=== PATIENT | female | born 1965 | race Two or more races ===

== ENCOUNTER 2024-11-22 14:02 | Inpatient (IN) | payer OTHER ==
[~2024-11-22] VITALS: Ht 162.6 cm; Wt 74.0 kg
--- NOTE | 2024-11-22 14:25 | ED.PDOC ---
HPI Comments 59 y/o F, with a history of vertigo, presents with c/c nonradiating, left sided chest pain, headache, and dizziness. Patient endorses on sudden, unprovoked, and atraumatic onset of symptoms at around 0600, this morning, after waking up. Pain is described as pressure-like in quality and has been ongoing since. She also reports dizziness and headache that began at the same time. She does have a history of vertigo, she did take meclizine this morning which did not seem to help. Denies any recent cough cold runny nose fever or chills. No recent injuries, prior ailments, sick contacts, travel, stressors, or additional pertinent events or history reported. Chief Complaint: Chest Pain Time Seen by MD: 16:30 Reviewed Notes: Nurses Notes, Allergies Allergies: Coded Allergies: Aspirin (Verified Allergy, Unknown, 11/22/24) Information Source: Patient Mode of Arrival: Ambulatory Severity: Moderate Timing: Hours Duration: Since onset Prehospital treatment: None Location: Substernal Radiation: Back (left upper back ) Quality: Sharp Onset: At Rest Cardiac Risk Factors: None PE Risk Factors: None History of: None Past Medical History Past Medical History (Other): vertigo Surgical History: Denies all surgeries RN CARDIAC REHAB History: Denies all RN CARDIAC REHAB Hx Family History Family History: Unknown Social History Smoker: Non-Smoker Alcohol: Denies ETOH Use Drugs: Denies Drug Use Lives In: Home Constitutional: denies: chills, diaphoresis, fatigue, fever, malaise, sweats, weakness, others EENTM: denies: blurred vision, double vision, ear bleeding, ear discharge, ear drainage, ear pain, ear ringing, eye pain, eye redness, hearing loss, mouth pain, mouth swelling, nasal discharge, nose bleeding, nose congestion, nose pain, photophobia, tearing, throat pain, throat swelling, voice changes, others Respiratory: denies: cough, hemoptysis, orthopnea, SOB at rest, shortness of breath, SOB with excertion, stridor, wheezing, others Cardiovascular: reports: chest pain; denies: dizzy spells, diaphoresis, Dyspnea on exertion, edema, irregular heart beat, left arm pain, lightheadedness, palpitations, PND, syncope, others Gastrointestinal: denies: abdomen distended, abdominal pain, blood streaked bowels, constipated, diarrhea, dysphagia, difficulty swallowing, hematemesis, melena, nausea, poor appetite, poor fluid intake, rectal bleeding, rectal pain, vomiting, others Genitourinary: denies: abnormal vagina bleeding, burning, dyspareunia, dysuria, flank pain, frequency, hematuria, incontinence, pain, , vagina discharge, urgency, others Neurological: denies: dizziness, fainting, headache, left sided numbness, left sided weakness, numbness, paresthesia, pre-existing deficit, right sided numbness, right sided weakness, seizure, speech problems, tingling, tremors, weakness, others Musculoskeletal: denies: back pain, gout, joint pain, joint swelling, muscle pain, muscle stiffness, neck pain, others Physical Exam General Appearance: No Apparent Distress, Normal HEENT: Normal ENT Inspection, Pharynx Normal, TMs Normal Neck: Full Range of Motion, Non-Tender, Normal, Normal Inspection Respiratory: Chest Non-Tender, Lungs Clear, No Accessory Muscle Use, No Respi ratory Distress, Normal Breath Sounds Cardiovascular: No Edema, No JVD, No Murmur, No Gallop, Normal Peripheral Pulses, Regular Rate/Rhythm Breast Exam: Deferred Gastrointestinal: No Organomegaly, Non Tender, No Pulsatile Mass, Normal Bowel Sounds, Soft Genitalia: Deferred Pelvic: Deferred Rectal: Deferred Extremities: No calf tenderness, Normal capillary refill, Normal inspection, Normal range of motion, Non-tender, No pedal edema Musculoskeletal : Apperance: Normal Neurologic: Alert, No Motor Deficits, Normal Affect, Normal Mood, No Sensory Deficits, Other (5 Out of 5 strength bilateral upper and lower extremities, intact rapid alternating movements of the hand, intact [id number] bilaterally per) Cerebellar Function: Normal Reflexes: Normal Skin: Dry, Normal Color, Warm Lymphatic: No Adenopathy EKG EKG #1: Comments Rate of 62 normal sinus rhythm no significant ST change EKG #2: Comments Sinus rhythm rate of [address] changes EKG #3: Comments EKG 3. Done at 5:32 p.m.. Demonstrates rate of 58 sinus rhythm no significant ST changes. Was a procedure done? Was a procedure done?: No CP Differential Dx Differential Diagnosis: N/A Differential Diagnosis: N/A Differential Diagnosis: Angina, Chest Wall Pain, Cholelithiasis, Costochondritis, Gastritis, Myocardial Infarction, Pneumonia, Pulmonary Embolus X-Ray, Labs, Meds, VS Vital Signs Date Time Temp Pulse Resp B/P (MAP) Pulse Ox O2 Delivery O2 Flow Rate FiO2 11/22/24 15:13 54 11/22/24 14:10 62 11/22/24 14:06 97.9 60 18 149/89 96 97.9 Lab Test 11/22/24 17:17 11/22/24 15:07 11/22/24 14:40 11/22/24 14:14 Range/Units Troponin I High Sensitivity < 3 L < 3 L < 3 L </=34 ng/L White Blood Count 6.3 4.4-10.8 10^3/uL Red Blood Count 4.53 4.0-5.20 10^6/uL Hemoglobin 14.0 12.2-16.2 g/dL Hematocrit 40.9 36.0-46.0 % Mean Corpuscular Volume 90.3 80.0-100.0 fL Mean Corpuscular Hemoglobin 30.8 28.0-32.0 pg Mean Corpuscular Hemoglobin Concent 34.2 32.0-36.0 g/dL Red Cell Distribution Width 12.8 11.8-14.3 % Platelet Count 239 140-450 10^3/uL Mean Platelet Volume 9.0 6.9-10.8 fL Neutrophils (%) (Auto) 51.1 37.0-80.0 % Lymphocytes (%) (Auto) 41.3 10.0-50.0 % Monocytes (%) (Auto) 5.5 0.0-12.0 % Eosinophils (%) (Auto) 1.8 0.0-7.0 % Basophils (%) (Auto) 0.3 0.0-2.0 % Neutrophils # (Auto) 3.2 1.6-8.6 10 ^3/uL Lymphocytes # (Auto) 2.6 0.4-5.4 10 ^3/uL Monocytes # (Auto) 0.4 0-1.3 10 ^3/uL Eosinophils # (Auto) 0.1 0-0.8 10 ^3/uL Basophils # (Auto) 0 0-0.2 10 ^3/uL Nucleated Red Blood Cells 0.1 % Sodium Level 143 136-145 mmol/L Potassium Level 4.0 3.5-5.1 mmol/L Chloride Level 109 H 98-107 mmol/L Carbon Dioxide Level 24 20-31 mmol/L Anion Gap 10 5-15 Blood Urea Nitrogen 7 L 9-23 mg/dL Creatinine 0.80 0.550-1.02 mg/dL Glomerular Filtration Rate Calc 86 >90 mL/min BUN/Creatinine Ratio 8.8 L 10.0-20.0 Serum Glucose 103 74-106 mg/dL Calcium Level 9.6 8.7-10.4 mg/dL [place] [id number] Ph: [phone] DIAGNOSTIC IMAGING Diagnostic Imaging Report : [id number] Signed PATIENT: ARIAN DELGADILLO ACCT: [id number] UNIT: [id number] : 1965 LOC: ER ROOM / BED: / AGE / SEX: 59 / F ADM STATUS: REG ER SERVICE 35 ORDERING PHYSICIAN: SHREE SLAUGHTER MD PROCEDURE(s): CXR2 - CHEST TWO VIEWS ROUTINE REASON: Chest pain ORDER NUMBER(s): [id number], ACCESSION NUMBER(s): [id number] CHEST TWO VIEWS ROUTINE CLINICAL HISTORY: Chest pain COMPARISON: None TECHNIQUE: Frontal and lateral view of the chest was obtained FINDINGS: Lines and Tubes: None Lungs: No focal consolidation. Pleura: No effusion. No pneumothorax. Cardiomediastinal contours: Unremarkable Bones: No acute osseous abnormality. IMPRESSION: No acute cardiopulmonary disease. ATED BY: ZOE AVILA DO DICTATED DATE/TIME: 11/22/241715 SIGNED BY: ZOE AVILA DO SIGNED DATE/TIME: 11/22/241715 CC: [address] [address] Ph: [phone] DIAGNOSTIC IMAGING Diagnostic Imaging Report : [id number] Signed PATIENT: ARIAN DELGADILLO ACCT: [id number] UNIT: [id number] : 1965 LOC: ER ROOM / BED: / AGE / SEX: 59 / F ADM STATUS: REG ER SERVICE 36 ORDERING PHYSICIAN: SHREE SLAUGHTER MD PROCEDURE(s): HWOCT - HEAD WITHOUT CONTRAST REASON: Headache rule out intracranial hemorrhage ORDER NUMBER(s): [id number], ACCESSION NUMBER(s): [id number] EXAM: CT HEAD WITHOUT CONTRAST INDICATION: Headache rule out intracranial hemorrhage TECHNIQUE: CT of the head without intravenous contrast. Radiation Dose Information: CT Dose: CTDI volume is 53.99 mGy. Dose-length product is 755.91 mGy*cm The dose indicators for CT are the volume Computed Tomography (CT) Dose Index (CTDIvol) and the Dose Length Product (DLP), and are measured in units of mGy and mGy-cm, respectively. These indicators are not patient dose, but values generated from the CT scanner acquisition factors. The report includes radiation exposure data for exposures received during this examination. COMPARISON: None FINDINGS: There is no evidence of acute intracranial hemorrhage, extra-axial collection, mass effect, midline shift, herniation or hydrocephalus. The ventricles, sulci and cisterns are age appropriate. The rodríguez-white differentiation is intact. Patchy periventricular and subcortical white matter hypoattenuation is nonspecific but may be related to small vessel ischemic disease. The visualized paranasal sinuses and mastoid air cells are clear. The surrounding soft tissues and osseous structures are unremarkable. IMPRESSION: 1. No acute intracranial hemorrhage 2. No paranasal sinus disease 3. Mastoids appear clear 59-year-old female presents here with chest discomfort dizziness and headache. She does report the chest discomfort is pressure-like radiation to left arm. At this time I am concerned about acute coronary syndrome. EKG x3 has not demonstrated any significant EKG changes. Troponin x2 is negative. CBC he is BMP are within normal limits. On my examination she has no focal weakness. I have given her meclizine in the ER. CT scan of the brain is unremarkable. At this time patient continues to have ongoing chest discomfort, I am concerned about acute ID syndrome and hospitalist team has been contacted. Patient has been given aspirin in the ER. Time of 1ST Reevaluation: 17:00 Reevaluation 1ST: Unchanged Patient Education/Counseling: Treatment Family Education/Counseling: No Family Present SEPSIS Sepsis Screen Date sepsis recognized/suspect: Nov 22, 2024 Time Sepsis recognized/suspect: 1407 Recent Procedure: No On Antibiotic Therapy: No Respiratory Rate >20: No Heart Rate >90: No Temp<36 C (96.8 F) or >38.3 C: No SBP <90 or MAP <65 mmHG: No New Acute Mental Status Change: No Is the patient on CPAP, BIPAP,: No Physician Orders Electrocardigram (11/22/24 15:04) Electrocardigram (11/22/24 17:04) Chest Two Views Routine (11/22/24 16:36) Head Without Contrast (11/22/24 16:37) Vital Signs Date Time Temp Pulse Resp B/P (MAP) Pulse Ox O2 Delivery O2 Flow Rate FiO2 11/22/24 15:13 54 11/22/24 14:10 62 11/22/24 14:06 97.9 60 18 149/89 96 97.9 Laboratory Tests Test 11/22/24 14:40 White Blood Count 6.3 10^3/uL (4.4-10.8) Departure 1 Departure Time of Disposition: 17:53 Impression: Primary Impression: Chest pain Qualified Codes: R07.9 - Chest pain, unspecified Additional Impressions: Dizziness Headache Qualified Codes: R51.9 - Headache, unspecified Disposition: ADMITTED INPATIENT Condition: Fair Critical Care Note Critical Care Time?: No Stability Stability form required: No Heart Score Heart Score: Heart Score Response (Comments) Value History Moderate Suspicious 1 EKG Normal 0 Age 45-64 1 Risk Factors 1 or 2 risk factors 1 Troponin Normal limit 0 Total 3 I personally scribed for SHREE SLAUGHTER MD ([email or web address]) on 11/22/24 at 14:25. Electronically submitted by Gama Ye ([email or web address]). I personally scribed for SHREE SLAUGHTER MD ([email or web address]) on 11/22/24 at 15:18. Electronically submitted by Gama Ye ([email or web address]). I personally scribed for SHREE SLAUGHTER MD ([email or web address]) on 11/22/24 at 16:40. Electronically submitted by Gama Ye ([email or web address]). I personally scribed for SHREE SLAUGHTER MD ([email or web address]) on 11/22/24 at 17:26. Electronically submitted by Gama Ye ([email or web address]). SHREE SLAUGHTER MD Nov 22, 2024 14:25
--- NOTE | 2024-11-22 15:14 | ECG ---
[facility] Test Date: 2024-11-22 Test Time: 15:13:11 Pat Name: ARIAN DELGADILLO Department: ED Room: 0273T Gender: F House Coordinator: DUSTY : 1965 Requested By: SHREE SLAUGHTER Order Number: [id number] Reading MD: Toan Mcnair Measurements Intervals [place] Rate: 54 P: 53 VA: 184 QRS: 31 QRSD: 93 T: 42 QT: 426 QTc: 404 Interpretive Statements Sinus rhythm Low voltage, precordial leads Electronically Signed On 11-24-2024 18:51:36 PDT by Toan Mcnair Please click the below link to view image of tracing.
[2024-11-22 17:16] LABS: Hematocrit 40.9 % (36.0-46.0); Hemoglobin 14.0 g/dL (12.2-16.2); Mean Corpuscular Hemoglobin 30.8 pg (28.0-32.0); Mean Corpuscular Volume 90.3 fL (80.0-100.0); Nucleated Red Blood Cells % 0.1 %
[2024-11-22 17:17] LABS: Potassium 4.0 mmol/L (3.5-5.1); Sodium 143 mmol/L (136-145)
[2024-11-22 17:18] LABS: Anion Gap 10 (5-15); Carbon Dioxide 24 mmol/L (20-31)
--- NOTE | 2024-11-22 17:18 | DVH ---
XY CHEST TWO VIEWS ROUTINE CLINICAL HISTORY: Chest pain COMPARISON: None TECHNIQUE: Frontal and lateral view of the chest was obtained FINDINGS: Lines and Tubes: None Lungs: No focal consolidation. Pleura: No effusion. No pneumothorax. Cardiomediastinal contours: Unremarkable Bones: No acute osseous abnormality. IMPRESSION: No acute cardiopulmonary disease.
[2024-11-22 17:19] LABS: Calcium 9.6 mg/dL (8.7-10.4)
[2024-11-22 17:20] LABS: Chloride 109 mmol/L (98-107)
[2024-11-22 17:23] LABS: BUN/Creatinine Ratio 8.8 (10.0-20.0); Glucose 103 mg/dL (74-106)
[2024-11-22 17:24] LABS: Blood Urea Nitrogen 7 mg/dL (9-23)
--- NOTE | 2024-11-22 17:28 | DVH ---
EXAM: CT HEAD WITHOUT CONTRAST INDICATION: Headache rule out intracranial hemorrhage TECHNIQUE: CT of the head without intravenous contrast. Radiation Dose Information: CT Dose: CTDI volume is 53.99 mGy. Dose-length product is 755.91 mGy*cm The dose indicators for CT are the volume Computed Tomography (CT) Dose Index (CTDIvol) and the Dose Length Product (DLP), and are measured in units of mGy and mGy-cm, respectively. These indicators are not patient dose, but values generated from the CT scanner acquisition factors. The report includes radiation exposure data for exposures received during this examination. COMPARISON: None FINDINGS: There is no evidence of acute intracranial hemorrhage, extra-axial collection, mass effect, midline s hift, herniation or hydrocephalus. The ventricles, sulci and cisterns are age appropriate. The rodríguez-white differentiation is intact. Patchy periventricular and subcortical white matter hypoattenuation is nonspecific but may be related to small vessel ischemic disease. The visualized paranasal sinuses and mastoid air cells are clear. The surrounding soft tissues and osseous structures are unremarkable. IMPRESSION: 1. No acute intracranial hemorrhage 2. No paranasal sinus disease 3. Mastoids appear clear
[2024-11-22] MEDS: MECLIZINE HCL 25 MG TAB PO ONE (19:24)
[2024-11-22] MEDS ORDERED: NITROGLYCERIN 0.4 MG SL TAB SL PRN (20:45)
[2024-11-22] MEDS ORDERED: ONDANSETRON HCL 4 MG/2 ML VIAL IV PRN (20:45)
[2024-11-22] MEDS ORDERED: MORPHINE SULFATE INJ 2 MG/ml SYRG IV PRN ×2 (20:45)
[2024-11-22 21:24] LABS: INR 1.0 (0.9-1.15); Partial Thromboplastin Time 25.6 SEC (24.5-34.5); Prothrombin Time 10.6 sec (9.3-11.8)
[2024-11-22 21:31] LABS: Magnesium 2.4 mg/dL (1.6-2.6); Triglycerides 110.0 mg/dL (< 150)
[2024-11-22 21:33] LABS: Alanine Aminotransferase 13.0 U/L (7-40); Albumin 4.5 g/dL (3.2-4.8); Alkaline Phosphatase 79.0 U/L (46-116); Bilirubin, Total 0.5 mg/dL (0.2-1.0); Total Protein 7.3 g/dL (5.7-8.2)
[2024-11-22 21:33] LABS: HDL Cholesterol 59.0 mg/dL (40-59)
[2024-11-22 21:36] LABS: Cholesterol 206.0 mg/dL (< 200)
[2024-11-22 21:51] LABS: Urine Protein, UAD Negative (Negative)
[2024-11-22 21:51] LABS: Lipase 58.0 U/L (12-53)
[2024-11-22 21:52] LABS: Bilirubin, Direct 0.1 mg/dL (<0.3)
[2024-11-22 21:56] LABS: Amphetamine Screen, Urine Neg (NEGATIVE); Barbiturate Scree,Urine Neg (NEGATIVE); Benzodiazephine Screen, Urine Neg (NEGATIVE); Cannabinoid Screen, Urine Neg (NEGATIVE); Cocaine Screen, Urine Neg (NEGATIVE); Opiate Scree,Urine Neg (NEGATIVE); Phencyclidine Screen, Urine Neg (NEGATIVE)
--- NOTE | 2024-11-22 22:01 | DVHHPRES ---
History of Present Illness Resident Creating Document: KARAN GARCIA History of Present Illness Peg Power is a 59 year female patient who presents to the ED with chief complaint of left sided oppressive chest pain which radiated to left ear which started in functional class IV on 11/23/2024 at 10:30 a.m. it has been continuous, initially pain had intensity of 8/10, and fluctuated with lowest 2/10, per patient it was triggered after waking up with holocephalic headache and dizziness, which was refractory to ibuprofen. Per patient there is no alleviating factor. Due to persistence of symptoms, patient decided speak with telehealth MANUFACTURING ASSEMBLER, who suggested evaluation in ED, prompting her visit. Denies any other associated symptoms Past medical history: Vertigo, patient was morbidly obese one year ago in completed treatment with Ozempic (she lost in one year approximately 60 lb) Surgical history: Hysterectomy Family history: Mother has heart disease Social history: Lives in [place] alone (next of kin is sister, andrew). Ex tobacco abuse (approximately 12.5 pack-year history of smoking), quit two months ago. Denies current tobacco, alcohol and other drug abuse Allergies: Aspirin and iodine Home medication: Ozempic, meclizine Patient seen and examined at bedside. Currently has no new complaints, chest pain is still present, currently 2/10 intensity at time of evaluation. Past Medical History Per HPI Past Surgical History Per HPI Family History Per HPI Past Social History Per HPI Review of Systems Review of Systems Per HPI Allergies: Coded Allergies: Aspirin (Verified Allergy, Unknown, 11/22/24) Medications Current Medications Medications Dose Ordered Sig/Kumar Route Start Time Stop Time Status Last Admin Dose Admin Acetaminophen 325 mg Q4HP PRN PO 11/22/24 20:45 Ondansetron HCl 4 mg Q4HP PRN IV 11/22/24 20:45 Morphine Sulfate 2 mg Q4HPRN PRN IV 11/22/24 20:45 Enoxaparin Sodium 40 mg DAILY SC 11/23/24 10:00 Nitroglycerin 0.4 mg Q5MINP PRN SL 11/22/24 20:45 Morphine Sulfate 2 mg Q30M PRN IV 11/22/24 20:45 Exam Vital Signs Vital Signs Date Time Temp Pulse Resp B/P (MAP) Pulse Ox O2 Delivery O2 Flow Rate FiO2 11/22/24 19:26 98.0 58 18 110/56 (74) 99 98.0 11/22/24 18:15 Room Air Exam Patient lying in bed, in no acute distress General: Lucid, afebrile, mucosae are moist Cardiovascular: Normal S1 and S2. No murmurs, gallops or rubs Respiratory: Normal ventilation mechanics. Clear lung sounds on auscultation Abdomen: Soft, nontender, no organomegaly, normal bowel sounds MSK/skin: Mobilizes 4 limbs. Skin is dry and warm Neurological: Oriented in 3 spheres. No motor no sensitive deficits. Pupils are isocoric and reactive Labs/Xrays Labs Test 11/22/24 20:55 11/22/24 20:54 11/22/24 20:34 11/22/24 20:32 Range/Units Total Bilirubin 0.5 0.2-1.0 mg/dL Direct Bilirubin 0.1 <0.3 mg/dL Aspartate Amino Transferase (AST) 19 13-40 U/L Alanine Aminotransferase (ALT) 13 7-40 U/L Alkaline Phosphatase 79 46-116 U/L Total Protein 7.3 5.7-8.2 g/dL Albumin 4.5 3.2-4.8 g/dL Thyroid Stimulating Hormone (TSH) 1.77 0.55-4.78 uIU/mL Prothrombin Time 10.6 9.3-11.8 sec Prothrombin Time INR 1.00 0.9-1.15 Activated Partial Thromboplast Time 25.6 24.5-34.5 SEC Lactic Acid Level 0.7 0.4-2.0 mmol/L Urine Color Colorless Yellow Urine Clarity Clear Clear Urine pH 7.0 5.0-9.0 Urine Specific Edgar 1.008 1.001-1.035 Urine Protein Negative Negative Urine Ketones Negative Negative Urine Blood Negative Negative /uL Urine Nitrite Negative Negative Urine Bilirubin Negative Negative Urine Urobilinogen Normal Negative mg/dL Urine Leukocyte Esterase Negative Negative /uL Urine RBC None seen 0 - 4 /hpf Urine Microscopic WBC 2 0-5 /HPF Urine Squamous Epithelial Cells Few <5 /hpf Urine Bacteria None seen None Seen /hpf Urine Glucose Normal Normal mg/dL Urine Opiates Screen Neg NEGATIVE Urine Fentanyl Screen Neg NEGATIVE Urine Barbiturates Screen Neg NEGATIVE Urine Phencyclidine Screen Neg NEGATIVE Urine Amphetamines Screen Neg NEGATIVE Urine Benzodiazepines Screen Neg NEGATIVE Urine Cocaine Screen Neg NEGATIVE Urine Cannabinoids Screen Neg NEGATIVE Test 11/22/24 17:17 11/22/24 14:40 Range/Units Troponin I High Sensitivity < 3 L </=34 ng/L White Blood Count 6.3 4.4-10.8 10^3/uL Red Blood Count 4.53 4.0-5.20 10^6/uL Hemoglobin 14.0 12.2-16.2 g/dL Hematocrit 40.9 36.0-46.0 % Mean Corpuscular Volume 90.3 80.0-100.0 fL Mean Corpuscular Hemoglobin 30.8 28.0-32.0 pg Mean Corpuscular Hemoglobin Concent 34.2 32.0-36.0 g/dL Red Cell Distribution Width 12.8 11.8-14.3 % Platelet Count 239 140-450 10^3/uL Mean Platelet Volume 9.0 6.9-10.8 fL Neutrophils (%) (Auto) 51.1 37.0-80.0 % Lymphocytes (%) (Auto) 41.3 10.0-50.0 % Monocytes (%) (Auto) 5.5 0.0-12.0 % Eosinophils (%) (Auto) 1.8 0.0-7.0 % Basophils (%) (Auto) 0.3 0.0-2.0 % Neutrophils # (Auto) 3.2 1.6-8.6 10 ^3/uL Lymphocytes # (Auto) 2.6 0.4-5.4 10 ^3/uL Monocytes # (Auto) 0.4 0-1.3 10 ^3/uL Eosinophils # (Auto) 0.1 0-0.8 10 ^3/uL Basophils # (Auto) 0 0-0.2 10 ^3/uL Nucleated Red Blood Cells 0.1 % Sodium Level 143 136-145 mmol/L Potassium Level 4.0 3.5-5.1 mmol/L Chloride Level 109 H 98-107 mmol/L Carbon Dioxide Level 24 20-31 mmol/L Anion Gap 10 5-15 Blood Urea Nitrogen 7 L 9-23 mg/dL Creatinine 0.80 0.550-1.02 mg/dL Glomerular Filtration Rate Calc 86 >90 mL/min BUN/Creatinine Ratio 8.8 L 10.0-20.0 Serum Glucose 103 74-106 mg/dL Hemoglobin A1c 5.4 <5.7 % A1C Calcium Level 9.6 8.7-10.4 mg/dL Phosphorus Level 4.0 2.4-5.1 mg/dL Magnesium Level 2.4 1.6-2.6 mg/dL B-Type Natriuretic Peptide 78.59 0-100 pg/mL Triglycerides Level 110 < 150 mg/dL Cholesterol Level 206 H < 200 mg/dL LDL Cholesterol 139 H < 100 mg/dL HDL Cholesterol 59 40-59 mg/dL Lipase 58 H 12-53 U/L SEPSIS Sepsis Screen Date sepsis recognized/suspect: Nov 22, 2024 Time Sepsis recognized/suspect: 1818 Recent Procedure: No On Antibiotic Therapy: No Respiratory Rate >20: No Heart Rate >90: No Temp<36 C (96.8 F) or >38.3 C: No SBP <90 or MAP <65 mmHG: No New Acute Mental Status Change: No Is the patient on CPAP, BIPAP,: No Physician Orders Electrocardigram (11/22/24 15:04) Electrocardigram (11/22/24 17:04) Chest Two Views Routine (11/22/24 16:36) Head Without Contrast (11/22/24 16:37) Admit (11/22/24 20:32) Code Status (11/22/24 20:32) Acetaminophen Tablet (Tylenol Tablet) (11/22/24 20:45) Ondansetron Hcl (Zofran) (11/22/24 20:45) Complete Blood Count (11/23/24 04:00) Comprehensive Metabolic Panel (11/23/24 04:00) Cardiac Diet-2gna,Lofat,Lochol (11/23/24 Breakfast) Echo 2d Mode Cardiac Dop (11/22/24 20:32) Morphine Sulfate Injection (11/22/24 20:45) Enoxaparin Sodium (Lovenox) (11/23/24 10:00) Nitroglycerin Sublingual (Ntrostat Subli (11/22/24 20:45) Morphine Sulfate Injection (11/22/24 20:45) Oxygen By Nasal Cannula (11/22/24 20:32) Stat Ekg For Chest Pain (11/22/24 20:32) Notify Md Of Changes From Base (11/22/24 20:32) Police Dispatcher For 24 Hours (11/22/24 20:32) Emergency Dysrhythmia Protocol (11/22/24 20:32) Rhythm Strips Once Every Shift (11/22/24 20:32) Vitamin D, 25-Hydroxy (11/22/24 20:32) Vitamin B12 (11/22/24 20:32) Carotid Duplx W Color Dop (11/23/24 10:00) Vital Signs Date Time Temp Pulse Resp B/P (MAP) Pulse Ox O2 Delivery O2 Flow Rate FiO2 11/22/24 19:26 98.0 58 18 110/56 (74) 99 98.0 11/22/24 18:15 62 20 99 Room Air 11/22/24 18:15 97.6 62 20 122/51 (74) 99 97.6 11/22/24 17:32 58 11/22/24 15:13 54 11/22/24 14:10 62 11/22/24 14:06 97.9 60 18 149/89 96 97.9 Laboratory Tests Test 11/22/24 14:40 11/22/24 20:34 White Blood Count 6.3 10^3/uL (4.4-10.8) Lactic Acid Level 0.7 mmol/L (0.4-2.0) Medications Medications Dose Ordered Sig/Kumar Route Start Time Stop Time Status Last Admin Dose Admin Meclizine HCl 50 mg ONCE ONCE PO 11/22/24 16:45 11/22/24 16:46 DC 11/22/24 19:24 50 MG Assessment/Plan Assessment/Plan Questionable unstable angina Troponin x3 negative, EKG shows no ST alteration (sinus bradycardia with micro voltage). We will ordered echocardiogram to evaluate wall motion abnormalities Chest x-ray with no acute findings Patient is allergic to aspirin. Indicated clopidogrel and atorvastatin Ruled out CVA BPPV Completed head CT which ruled out intracranial pathology Continue meclizine History of morbid obesity status post GLP-1 inhibitors Rule out cholecystitis/symptomatic cholelithiasis Ordered abdominal ultrasound Ordered hemoglobin A1c Newly diagnosed dyslipidemia Currently on atorvastatin Goals of care discussed with patient for over 18 minutes: Full code status Discussed plan with Dr. Cardona, patient and nurses: Admit the patient to telemetry to evaluate cause of chest pain, we will rule out unstable angina at this point. Ordered echocardiogram. Patient is on clopidogrel and atorvastatin (she is allergic to aspirin). Patient is also allergic to iodine. Pending abdominal ultrasound to rule out abdominal cause of chest pain. Plan discussed with: Patient, Other (Nurses) My Orders Orders - KARAN GARCIA Procedure Category Date Status Time Admit ADMIT 11/22/24 Transmitted 20:32 Code Status CODE 11/22/24 Transmitted 20:32 Acetaminophen Tablet PHA 11/22/24 In Process (Tylenol Tablet) 20:45 Ondansetron Hcl PHA 11/22/24 In Process (Zofran) 20:45 Complete Blood Count LAB 11/23/24 Verified 04:00 Comprehensive LAB 11/23/24 Verified Metabolic Panel 04:00 Cardiac DIET 11/23/24 Transmitted Diet-2gna,Lofat,Lochol Breakfast Echo 2d Mode Cardiac US 11/22/24 Logged DOP 20:32 Morphine Sulfate PHA 11/22/24 In Process Injection 20:45 Enoxaparin Sodium PHA 11/23/24 In Process (Lovenox) 10:00 Nitroglycerin PHA 11/22/24 In Process Sublingual (Ntrostat 20:45 Morphine Sulfate PHA 11/22/24 In Process Injection 20:45 Oxygen By Nasal RT 11/22/24 Transmitted Cannula 20:32 Stat Ekg For Chest EDIE 11/22/24 In Process Pain 20:32 Notify Of Changes EDIE 11/22/24 In Process From Base 20:32 Police Dispatcher For EDIE 11/22/24 In Process 24 Hours 20:32 Emergency Dysrhythmia EDIE 11/22/24 In Process Protocol 20:32 Rhythm Strips Once EDIE 11/22/24 In Process Every Shift 20:32 Vitamin D, 25-Hydroxy LAB 11/22/24 In Process 20:32 Vitamin B12 LAB 11/22/24 In Process 20:32 Carotid Duplx W Color US 11/23/24 Logged DOP 10:00 Date of Service: Nov 22, 2024 Billing Provider: CARRI CARDONA MD Common Visit Codes: 23721-[id number] INP/OBS CARE (HIGH) Secondary Visit Codes: [id number]-[id number] CARE PLAN 30 MINUTES KARAN GARCIA RESIDENT Nov 22, 2024 22:01
[2024-11-22 22:02] VITALS: BP 133/80; PULSE 52; RESP 18; TEMP 98.1; O2SAT 99
[2024-11-22] MEDS: ACETAMINOPHEN 325 MG TAB PO PRN (22:27)
[2024-11-22 22:44] VITALS: BP 133/80; PULSE 52; RESP 18; RESP 99; TEMP 98.1; O2SAT 99
[2024-11-23] VITALS (8 sets, daily range): BP systolic 94–120; BP diastolic 54–66; PULSE 58–75; RESP 16–20; TEMP 97.2–98.2; O2SAT 97–99
[2024-11-23] MEDS ORDERED: SEMA2INJ3 SC (00:02)
[2024-11-23] MEDS ORDERED: MECL12.586 PO (00:02)
[2024-11-23] MEDS ORDERED: MECLIZINE HCL 25 MG TAB PO PRN (02:30)
[2024-11-23] MEDS: CLOPIDOGREL BISULFATE 75 MG TAB PO ONE (02:53)
[2024-11-23] MEDS: ATORVASTATIN 20 MG TAB PO ONE (02:53)
[2024-11-23 05:48] LABS: Alanine Aminotransferase 11 U/L (7-40); Albumin 3.8 g/dL (3.2-4.8); Alkaline Phosphatase 66 U/L (46-116); Anion Gap 9 (5-15); BUN/Creatinine Ratio 13.4 (10.0-20.0); Bilirubin, Total 0.4 mg/dL (0.2-1.0); Blood Urea Nitrogen 9 mg/dL (9-23); Calcium 8.9 mg/dL (8.7-10.4); Carbon Dioxide 25 mmol/L (20-31); Glucose 85 mg/dL (74-106); Potassium 3.7 mmol/L (3.5-5.1); Sodium 143 mmol/L (136-145); Total Protein 6.1 g/dL (5.7-8.2)
[2024-11-23 05:52] LABS: Chloride 109 mmol/L (98-107)
[2024-11-23] MEDS: PANTOPRAZOLE 40 MG TAB PO SCH (06:23)
--- NOTE | 2024-11-23 06:37 | ECG ---
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
[2024-11-23 07:48] LABS: Hematocrit 36.6 % (36.0-46.0); Hemoglobin 12.6 g/dL (12.2-16.2); Mean Corpuscular Hemoglobin 30.9 pg (28.0-32.0); Mean Corpuscular Volume 89.9 fL (80.0-100.0); Nucleated Red Blood Cells % 0.0 %
--- NOTE | 2024-11-23 08:46 | DVH ---
INDICATION: Abdominal pain, rule out gallbladder disease TECHNIQUE: Multiple real-time sonographic images were obtained of the right upper quadrant. COMPARISON: None FINDINGS: The liver demonstrates homogeneous echotexture without focal mass lesions. The liver measu res 4.9 cm. There is no intrahepatic or extrahepatic ductal dilatation. The common duct measures 0.4 cm. The gallbladder is without evidence of stone or sludge. The gallbladder wall measures 0.2 cm and is w ithin normal limits. The right kidney measures 10.1 cm. The right kidney is normal in contour, size, and shape. The echoge nicity is normal. There is no hydronephrosis. The pancreas is not well visualized due to overlying bowel gas. IMPRESSION: Unremarkable right upper quadrant sonogram.
[2024-11-23] MEDS: ENOXAPARIN SOD 40 MG/0.4 ML SYRINGE SC SCH (10:23)
[2024-11-23] MEDS: CLOPIDOGREL BISULFATE 75 MG TAB PO SCH (10:24)
--- NOTE | 2024-11-23 12:27 | DVH ---
Indication: Dizziness Technique: Real-time ultrasound images of the neck vessels with rodríguez-scale, color and wave Doppler we re obtained. Comparison: None Findings: There is [id number] atherosclerotic plaque. The following peak systolic velocities were recorded in cm/sec: Right internal carotid: 80 Right common carotid: 67 Right external carotid: 68 Right internal/common carotid ratio: 1.2 Left internal carotid: 68 Left common carotid: 57 Left external carotid: 64 Left internal/common carotid ratio: 1.2 Right vertebral artery: Patent with normal antegrade direction of flow. Left vertebral artery: Patent with normal antegrade direction of flow. Impression: No hemodynamically significant stenosis by velocity criteria.
--- NOTE | 2024-11-23 14:39 | DVHPN2 ---
Subjective Patient continues to report having left-sided chest discomfort. Reviewed: Care Plan, H&P, Medications Changes from previous H/P or p: No Changes General: Per HPI Objective Vitals Vital Signs Date Time Temp Pulse Resp B/P (MAP) Pulse Ox O2 Delivery O2 Flow Rate FiO2 11/23/24 09:29 97.8 65 16 94/58 (70) 97 97.8 11/23/24 08:00 Room Air* 0 21 Intake/Output Intake and Output 11/23/24 07:00 Intake Total 100 ml Balance 100 ml Intake Oral 100 ml # Voids 1 General Appearance: Alert, Oriented X3, Cooperative, mild distress HEENT: Atraumatic, PERRLA Cardiovascular: Normal S1, Normal S2 Abdomen: Normal bowel sounds, Soft, No tenderness, No hepatospenomegaly, No masses Genitourinary: No Apparent Abnormalities Musculoskeletal: Normal sensory function, Normal motor function Neuro: Normal gait, Normal speech Skin: Dry, Intact Psych/Mental Status: Mental status NL, Mood NL Medications Current Medications Medications Dose Ordered Sig/Kumar Route Start Time Stop Time Status Last Admin Dose Admin Acetaminophen 325 mg Q4HP PRN PO 11/22/24 20:45 11/23/24 10:24 325 MG Ondansetron HCl 4 mg Q4HP PRN IV 11/22/24 20:45 Morphine Sulfate 2 mg Q4HPRN PRN IV 11/22/24 20:45 Enoxaparin Sodium 40 mg DAILY SC 11/23/24 10:00 11/23/24 10:23 40 MG Nitroglycerin 0.4 mg Q5MINP PRN SL 11/22/24 20:45 Morphine Sulfate 2 mg Q30M PRN IV 11/22/24 20:45 Clopidogrel Bisulfate 75 mg DAILY PO 11/23/24 10:00 11/23/24 10:24 75 MG Pantoprazole Sodium 40 mg DAILY@0600 PO 11/23/24 06:00 11/23/24 06:23 40 MG Atorvastatin Calcium 40 mg HS PO 11/23/24 22:00 Meclizine HCl 25 mg [id number] PRN PO 11/23/24 02:30 Laboratory Results Laboratory Tests 11/23/24 05:08 11/23/24 07:18 Chemistry Test 11/22/24 14:40 11/22/24 20:54 11/23/24 05:08 Calcium Level 9.6 mg/dL (8.7-10.4) 8.9 mg/dL (8.7-10.4) Magnesium Level 2.4 mg/dL (1.6-2.6) Phosphorus Level 4.0 mg/dL (2.4-5.1) Albumin 4.5 g/dL (3.2-4.8) 3.8 g/dL (3.2-4.8) Total Protein 7.3 g/dL (5.7-8.2) 6.1 g/dL (5.7-8.2) Coagulation Test 11/22/24 20:34 Prothrombin Time 10.6 sec (9.3-11.8) Prothrombin Time INR 1.00 (0.9-1.15) Activated Partial Thromboplast Time 25.6 SEC (24.5-34.5) Lipid panel Test 11/22/24 14:40 Cholesterol Level 206 mg/dL (< 200) H HDL Cholesterol 59 mg/dL (40-59) Lipase 58 U/L (12-53) H Triglycerides Level 110 mg/dL (< 150) Cardiac Markers Test 11/22/24 14:40 B-Type Natriuretic Peptide 78.59 pg/mL (0-100) LFT Test 11/22/24 20:54 11/23/24 05:08 Alanine Aminotransferase (ALT) 13 U/L (7-40) 11 U/L (7-40) Alkaline Phosphatase 79 U/L (46-116) 66 U/L (46-116) Aspartate Amino Transferase (AST) 19 U/L (13-40) 18 U/L (13-40) Direct Bilirubin 0.1 mg/dL (<0.3) Total Bilirubin 0.5 mg/dL (0.2-1.0) 0.4 mg/dL (0.2-1.0) HgA1c, TSH Test 11/22/24 14:40 11/22/24 20:54 Hemoglobin A1c 5.4 % A1C (<5.7) Thyroid Stimulating Hormone (TSH) 1.77 uIU/mL (0.55-4.78) Urinalysis Test 11/22/24 20:32 Urine Color Colorless (Yellow) Urine Clarity Clear (Clear) Urine pH 7.0 (5.0-9.0) Urine Specific [place] 1.008 (1.001-1.035) Urine Protein Negative (Negative) Urine Ketones Negative (Negative) Urine Blood Negative /uL (Negative) Urine Nitrite Negative (Negative) Urine Bilirubin Negative (Negative) Urine Urobilinogen Normal mg/dL (Negative) Urine Leukocyte Esterase Negative /uL (Negative) Urine RBC None seen /hpf (0 - 4) Urine Microscopic WBC 2 /HPF (0-5) Urine Squamous Epithelial Cells Few /hpf (<5) Urine Bacteria None seen /hpf (None Seen) Urine Glucose Normal mg/dL (Normal) Labs and/or images reviewed: Labs reviewed by me, Image(s) reviewed by me Assessment/Plan Assessment/Plan Impression: -rule out ACS -probable esophagitis, gastritis, rule out Kerr's esophagitis -BPPV Plan: -cardiac workup thus far negative, pending echocardiogram -discussion made with the patient regarding home symptoms which include severe GERD, previous treatment with omeprazole. Patient takes baking soda every evening to avoid indigestion during sleep. -GI consultation -PPI -continue meclizine -further course of care per GI consultation and echocardiogram results Total time spent with patient discussing and formulating plan of care: 35 minutes. This medical document was created using an electronic medical record system with [employer] dictation system. Although this document has been carefully reviewed, there may still be some phonetic and typographical errors. These areas are purely typographical due to imperfections of the software programs, and do not reflect any compromise in the patient's medical care. Plan discussed with: Patient, Other (RN) My Orders Orders - CINDI MURRAY NP Procedure Category Date Status Time Erythrocyte LAB 11/23/24 Logged Sedimentation Rate 14:23 C-Reactive Protein LAB 11/23/24 Logged 14:23 Date of Service: Nov 23, 2024 Billing Provider: CINDI MURRAY NP Common Visit Codes: [id number] INP/OBS CARE(HIGH) CINDI MURRAY NP Nov 23, 2024 14:39
--- NOTE | 2024-11-23 16:25 | DVHSR ---
APPROVED REPORT EXAM: Two-dimensional and M-mode echocardiogram with Doppler and color Doppler. Blood Pressure: 120/54 mmHg INDICATION Chest Pain RISK FACTORS Height: 5'4", Weight: 156 DIMENSIONS LVDd4.1 (3.8-5.7cm)LA (2D)3.2 (1.9-4.0cm)Aortic Root2.9 (2.0-3.7cm) LVDs3.0 (2.5-4.0cm)LA (MM) (1.9-4.0cm)Aortic Cusp Exc1.8 (1.5-2.0cm) EF (%) 55.0 (55-70%)Rt. Atrium3.5 (1.9-4.0cm)Asc. Aorta cm IVSd0.9 (0.7-1.1cm)RV (D) (1.8-2.4cm) PWd0.8 (0.7-1.1cm) Mitral Valve MitralMitral Stenosis E wave0.80m/sMV Mean GR.mmHg A wave0.60m/sMV Peak GR.mmHg E/A ratio1.32D MVAcm2 DECEL [id number] 1/2 Timems Aortic Valve Aortic ValveAortic Stenosis V10.89m/Skuhwinder Mean GR.4mmHg V21.39m/Sukhwinder Peak GR.8mmHg LVOT Diameter2.1 (1.8-2.4cm)Doppler AVA2.22cm2 Pulmonic Valve V20.84m/s Tricuspid Valve TR Velocity2.03m/s [id number] Conclusion LV EF IS 65% NORMAL VALVES NORMAL RV FUNCTION NO EFFUSION
[2024-11-23] MEDS: ATORVASTATIN 20 MG TAB PO SCH (21:38)
[2024-11-23] MEDS: SODIUM BICARBONATE 650 MG TAB PO SCH (21:38)
[2024-11-23] MEDS: PANTOPRAZOLE 40 MG/10 ML VIAL INJ IV SCH (21:39)
[2024-11-24] VITALS (8 sets, daily range): BP systolic 95–109; BP diastolic 62–65; PULSE 54–75; RESP 15–20; TEMP 97.3–98.6; O2SAT 96–100
--- NOTE | 2024-11-24 12:28 | ECG ---
Test Date: 2024-11-22 Test Time: 14:10:03 Pat Name: ARIAN DELGADILLO Department: ED Room: 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
--- NOTE | 2024-11-24 13:46 | DVHPN2 ---
Subjective Patient continues to report having left-sided chest discomfort. Reviewed: Care Plan, H&P, Medications Changes from previous H/P or p: No Changes General: Per HPI Objective Vitals Vital Signs Date Time Temp Pulse Resp B/P (MAP) Pulse Ox O2 Delivery O2 Flow Rate FiO2 11/24/24 09:00 98.0 69 15 103/63 (76) 96 98.0 11/24/24 08:00 Room Air* 0 21 Intake/Output Intake and Output 11/24/24 07:00 Intake Total 460 ml Balance 460 ml Intake Oral 460 ml # Voids 8 # Bowel Movements 1 General Appearance: Alert, Oriented X3, Cooperative, mild distress HEENT: Atraumatic, PERRLA Cardiovascular: Normal S1, Normal S2 Abdomen: Normal bowel sounds, Soft, No tenderness, No hepatospenomegaly, No masses Genitourinary: No Apparent Abnormalities Musculoskeletal: Normal sensory function, Normal motor function Neuro: Normal gait, Normal speech Skin: Dry, Intact Psych/Mental Status: Mental status NL, Mood NL Medications Current Medications Medications Dose Ordered Sig/Kumar Route Start Time Stop Time Status Last Admin Dose Admin Acetaminophen 325 mg Q4HP PRN PO 11/22/24 20:45 11/24/24 09:20 325 MG Ondansetron HCl 4 mg Q4HP PRN IV 11/22/24 20:45 Morphine Sulfate 2 mg Q4HPRN PRN IV 11/22/24 20:45 Enoxaparin Sodium 40 mg DAILY SC 11/23/24 10:00 11/23/24 10:23 40 MG Nitroglycerin 0.4 mg Q5MINP PRN SL 11/22/24 20:45 Morphine Sulfate 2 mg Q30M PRN IV 11/22/24 20:45 Atorvastatin Calcium 40 mg HS PO 11/23/24 22:00 11/23/24 21:38 40 MG Meclizine HCl 25 mg [id number] PRN PO 11/23/24 02:30 Pantoprazole Sodium 40 mg BID IV 11/23/24 22:00 11/23/24 21:39 40 MG Sodium Bicarbonate 650 mg TID PO 11/23/24 22:00 11/24/24 06:10 650 MG Laboratory Results Laboratory Tests 11/23/24 05:08 11/23/24 07:18 Urinalysis Test 11/22/24 20:32 Urine Color Colorless (Yellow) Urine Clarity Clear (Clear) Urine pH 7.0 (5.0-9.0) Urine Specific [place] 1.008 (1.001-1.035) Urine Protein Negative (Negative) Urine Ketones Negative (Negative) Urine Blood Negative /uL (Negative) Urine Nitrite Negative (Negative) Urine Bilirubin Negative (Negative) Urine Urobilinogen Normal mg/dL (Negative) Urine Leukocyte Esterase Negative /uL (Negative) Urine RBC None seen /hpf (0 - 4) Urine Microscopic WBC 2 /HPF (0-5) Urine Squamous Epithelial Cells Few /hpf (<5) Urine Bacteria None seen /hpf (None Seen) Urine Glucose Normal mg/dL (Normal) Labs and/or images reviewed: Labs reviewed by me, Image(s) reviewed by me Assessment/Plan Assessment/Plan Impression: -rule out ACS -probable esophagitis, gastritis, rule out Kerr's esophagitis -BPPV Plan: -cardiac workup negative. Patient with epigastric, GERD pain. Echocardiogram within normal limits. Discussed case Gastroenterology. Plans for EGD tomorrow. -GI consultation -PPI -continue meclizine -further course of care per GI consultation and echocardiogram results Total time spent with patient discussing and formulating plan of care: 35 minutes. This medical document was created using an electronic medical record system with [employer] dictation system. Although this document has been carefully reviewed, there may still be some phonetic and typographical errors. These areas are purely typographical due to imperfections of the software programs, and do not reflect any compromise in the patient's medical care. Plan discussed with: Patient, Other (RN) My Orders Orders - CINDI MURRAY NP Procedure Category Date Status Time Pantoprazole PHA 11/23/24 In Process (Protonix) 22:00 Sodium Bicarb Tab PHA 11/23/24 In Process 22:00 * Gi Dvh Ski Technician CONS 11/23/24 Transmitted 14:25 Date of Service: Nov 24, 2024 Billing Provider: CINDI MURRAY NP Common Visit Codes: [id number] INP/OBS CARE(HIGH) CINDI MURRAY NP Nov 24, 2024 13:46
--- NOTE | 2024-11-24 13:47 | DVHINCON2 ---
GI Consult Consult Note GI consult note Date of Consultation: 11/24/2024 Chief Complaint: GERD Referring Physician: Jennifer CARPENTER H&P: 59-year-old female admitted with complains of left-sided chest pain/pressure which radiates to her back, pain is worse after eating solid food or liquids. No nausea or vomiting. Patient has history of GERD symptoms just getting worse described as burning sensation. No abdominal pain. Patient is on Ozempic, last dosage last Sunday11/18/2024. And has weight loss of 60 lb since starting Ozempic in June 2023. No EGD in past. Patient is on Plavix and Lovenox. Past Medical History: Morbid obesity treated with Ozempic with weight loss of 60 lb Past Surgical History: Hysterectomy Social History: NO smoking, drinking ETOH and use of illegal drugs. Family History: Noncontributory Review of Systems: Constitutional: no fever, chill, weight loss HEENT: no eye pain, no hearing loss, no oral lesion, no scleral icterus Heart: no chest pain, no chest pressure Lung: no cough, no dyspnea with exertion Abdomen: see HPI Physical exam: General: NAD, AAOX3 Chest: lung chung clear to auscultation Heart: RRR, no murmur Abdomen: non-distended, no tenderness to palpation, +BS Labs: Labs Test 11/23/24 07:18 11/23/24 05:08 11/22/24 20:55 11/22/24 20:54 Range/Units White Blood Count 5.8 4.4-10.8 10^3/uL Red Blood Count 4.08 4.0-5.20 10^6/uL Hemoglobin 12.6 12.2-16.2 g/dL Hematocrit 36.6 # 36.0-46.0 % Mean Corpuscular Volume 89.9 80.0-100.0 fL Mean Corpuscular Hemoglobin 30.9 28.0-32.0 pg Mean Corpuscular Hemoglobin Concent 34.4 32.0-36.0 g/dL Red Cell Distribution Width 13.1 11.8-14.3 % Platelet Count 188 140-450 10^3/uL Mean Platelet Volume 8.6 6.9-10.8 fL Neutrophils (%) (Auto) 44.3 37.0-80.0 % Lymphocytes (%) (Auto) 45.3 10.0-50.0 % Monocytes (%) (Auto) 7.3 0.0-12.0 % Eosinophils (%) (Auto) 2.6 0.0-7.0 % Basophils (%) (Auto) 0.5 0.0-2.0 % Neutrophils # (Auto) 2.6 1.6-8.6 10 ^3/uL Lymphocytes # (Auto) 2.6 0.4-5.4 10 ^3/uL Monocytes # (Auto) 0.4 0-1.3 10 ^3/uL Eosinophils # (Auto) 0.2 0-0.8 10 ^3/uL Basophils # (Auto) 0 0-0.2 10 ^3/uL Nucleated Red Blood Cells 0.0 % Erythrocyte Sedimentation Rate 9 0-20 mm/hr Sodium Level 143 136-145 mmol/L Potassium Level 3.7 3.5-5.1 mmol/L Chloride Level 109 H 98-107 mmol/L Carbon Dioxide Level 25 20-31 mmol/L Anion Gap 9 5-15 Blood Urea Nitrogen 9 9-23 mg/dL Creatinine 0.67 0.550-1.02 mg/dL Glomerular Filtration Rate Calc 102 >90 mL/min BUN/Creatinine Ratio 13.4 10.0-20.0 Serum Glucose 85 74-106 mg/dL Calcium Level 8.9 8.7-10.4 mg/dL Total Bilirubin 0.4 0.2-1.0 mg/dL Aspartate Amino Transferase (AST) 18 13-40 U/L Alanine Aminotransferase (ALT) 11 7-40 U/L Alkaline Phosphatase 66 46-116 U/L C-Reactive Protein High Sensitivity 0.18 <1.0 mg/dL Total Protein 6.1 5.7-8.2 g/dL Albumin 3.8 3.2-4.8 g/dL Vitamin B12 Level 882 211-911 pg/mL Vitamin D 25-Hydroxy 55.4 30.0-100 ng/mL Direct Bilirubin 0.1 <0.3 mg/dL Thyroid Stimulating Hormone (TSH) 1.77 0.55-4.78 uIU/mL Test 11/22/24 20:34 11/22/24 20:32 11/22/24 17:17 11/22/24 14:40 Range/Units Prothrombin Time 10.6 9.3-11.8 sec Prothrombin Time INR 1.00 0.9-1.15 Activated Partial Thromboplast Time 25.6 24.5-34.5 SEC Lactic Acid Level 0.7 0.4-2.0 mmol/L Urine Color Colorless Yellow Urine Clarity Clear Clear Urine pH 7.0 5.0-9.0 Urine Specific [place] 1.008 1.001-1.035 Urine Protein Negative Negative Urine Ketones Negative Negative Urine Blood Negative Negative /uL Urine Nitrite Negative Negative Urine Bilirubin Negative Negative Urine Urobilinogen Normal Negative mg/dL Urine Leukocyte Esterase Negative Negative /uL Urine RBC None seen 0 - 4 /hpf Urine Microscopic WBC 2 0-5 /HPF Urine Squamous Epithelial Cells Few <5 /hpf Urine Bacteria None seen None Seen /hpf Urine Glucose Normal Normal mg/dL Urine Opiates Screen Neg NEGATIVE Urine Fentanyl Screen Neg NEGATIVE Urine Barbiturates Screen Neg NEGATIVE Urine Phencyclidine Screen Neg NEGATIVE Urine Amphetamines Screen Neg NEGATIVE Urine Benzodiazepines Screen Neg NEGATIVE Urine Cocaine Screen Neg NEGATIVE Urine Cannabinoids Screen Neg NEGATIVE Troponin I High Sensitivity < 3 L </=34 ng/L Hemoglobin A1c 5.4 <5.7 % A1C Phosphorus Level 4.0 2.4-5.1 mg/dL Magnesium Level 2.4 1.6-2.6 mg/dL B-Type Natriuretic Peptide 78.59 0-100 pg/mL Triglycerides Level 110 < 150 mg/dL Cholesterol Level 206 H < 200 mg/dL LDL Cholesterol 139 H < 100 mg/dL HDL Cholesterol 59 40-59 mg/dL Lipase 58 H 12-53 U/L Imaging: Abdominal ultrasound IMPRESSION: Unremarkable right upper quadrant sonogram. Echocardiogram Conclusion LV EF IS 65% NORMAL VALVES NORMAL RV FUNCTION NO EFFUSION Assessment: Rule out ACS Severe GERD Plan: Discussed with Dr. Solis - Pt will be scheduled for an EGD tomorrow 11/25/2024. Pt was informed of the risks (bleeding, infection, perforation, reaction to sedation medications and cardiopulmonary arrest) and benefit and is agreeable to undergo the procedures. Hold blood thinners Continue PPI Discussed plan with patient and hospitalist Thank you for this consult Date of Service: Nov 24, 2024 Billing Provider: RAHEEM OTTO Common Visit Codes: CONSULT ONLY Consultation Codes: [id number] CONSULT <60MIN RAHEEM OTTO Nov 24, 2024 13:47
[2024-11-25] VITALS (8 sets, daily range): BP systolic 99–128; BP diastolic 54–74; PULSE 59–89; RESP 13–26; TEMP 98.1–98.7; O2SAT 95–100
--- NOTE | 2024-11-25 08:01 | ECG ---
[facility] Test Date: 2024-11-25 Test Time: 05:42:18 Pat Name: ARIAN DELGADILLO Department: Respiratoy Room: [facility]3T A Gender: F [employer]orer [employer]: DEL[place] Ni : 1965 Requested By: JAKUB OTTO Order Number: [id number] Reading MD: Toan Mcnair Measurements Intervals [place] Rate: 73 P: 49 ID: [id number] QRS: 24 QRSD: 92 T: 34 QT: 402 QTc: 443 Interpretive Statements Sinus rhythm Electronically Signed On 11-25-2024 15:38:42 PDT by Toan Mcnair Please click the below link to view image of tracing.
--- NOTE | 2024-11-25 12:32 | DVHPN2 ---
Subjective Patient continues to report having left-sided chest discomfort. Reviewed: Care Plan, H&P, Medications Changes from previous H/P or p: No Changes General: Per HPI Objective Vitals Vital Signs Date Time Temp Pulse Resp B/P (MAP) Pulse Ox O2 Delivery O2 Flow Rate FiO2 11/25/24 08:48 98.1 66 15 106/54 (71) 100 98.1 11/25/24 07:45 Room Air* 0 21 Intake/Output Intake and Output 11/25/24 07:00 Intake Total 1600 ml Balance 1600 ml Intake Oral 1600 ml # Voids 6 General Appearance: Alert, Oriented X3, Cooperative, mild distress HEENT: Atraumatic, PERRLA Cardiovascular: Normal S1, Normal S2 Abdomen: Normal bowel sounds, Soft, No tenderness, No hepatospenomegaly, No masses Genitourinary: No Apparent Abnormalities Musculoskeletal: Normal sensory function, Normal motor function Neuro: Normal gait, Normal speech Skin: Dry, Intact Psych/Mental Status: Mental status NL, Mood NL Medications Current Medications Medications Dose Ordered Sig/Kumar Route Start Time Stop Time Status Last Admin Dose Admin Acetaminophen 325 mg Q4HP PRN PO 11/22/24 20:45 11/24/24 20:21 325 MG Ondansetron HCl 4 mg Q4HP PRN IV 11/22/24 20:45 Morphine Sulfate 2 mg Q4HPRN PRN IV 11/22/24 20:45 Nitroglycerin 0.4 mg Q5MINP PRN SL 11/22/24 20:45 Morphine Sulfate 2 mg Q30M PRN IV 11/22/24 20:45 Atorvastatin Calcium 40 mg HS PO 11/23/24 22:00 11/24/24 21:44 40 MG Meclizine HCl 25 mg [id number] PRN PO 11/23/24 02:30 Pantoprazole Sodium 40 mg BID IV 11/23/24 22:00 11/25/24 09:14 40 MG Sodium Bicarbonate 650 mg TID PO 11/23/24 22:00 11/24/24 21:44 650 MG Laboratory Results Laboratory Tests 11/23/24 05:08 11/23/24 07:18 Urinalysis Test 11/22/24 20:32 Urine Color Colorless (Yellow) Urine Clarity Clear (Clear) Urine pH 7.0 (5.0-9.0) Urine Specific [place] 1.008 (1.001-1.035) Urine Protein Negative (Negative) Urine Ketones Negative (Negative) Urine Blood Negative /uL (Negative) Urine Nitrite Negative (Negative) Urine Bilirubin Negative (Negative) Urine Urobilinogen Normal mg/dL (Negative) Urine Leukocyte Esterase Negative /uL (Negative) Urine RBC None seen /hpf (0 - 4) Urine Microscopic WBC 2 /HPF (0-5) Urine Squamous Epithelial Cells Few /hpf (<5) Urine Bacteria None seen /hpf (None Seen) Urine Glucose Normal mg/dL (Normal) Labs and/or images reviewed: Labs reviewed by me, Image(s) reviewed by me Assessment/Plan Assessment/Plan Impression: -rule out ACS -probable esophagitis, gastritis, rule out Kerr's esophagitis -BPPV Plan: -cardiac workup negative. Patient with epigastric, GERD pain. Echocardiogram within normal limits. Discussed case Gastroenterology. Pending EGD today. -GI consultation -PPI -continue meclizine -echocardiogram normal -antiplatelet therapy stopped yesterday Total time spent with patient discussing and formulating plan of care: 35 minutes. This medical document was created using an electronic medical record system with [employer] dictation system. Although this document has been carefully reviewed, there may still be some phonetic and typographical errors. These areas are purely typographical due to imperfections of the software programs, and do not reflect any compromise in the patient's medical care. Plan discussed with: Patient, Other (RN) Date of Service: Nov 25, 2024 Billing Provider: CINDI MURRAY NP Common Visit Codes: [id number] INP/OBS CARE(HIGH) CINDI MURRAY NP Nov 25, 2024 12:32
[2024-11-25] MEDS ORDERED: MIDAZOLAM HCL 2MG/2ML 2ml VIAL (1mg/ml) ONE (14:01)
[2024-11-25] MEDS ORDERED: LIDOCAINE 2% (LOCAL ANESTH.) PF 5ml SDV ONE (14:01)
[2024-11-25] MEDS ORDERED: GLYCOPYRROLATE 0.2 MG/ML 1ML VIAL ONE (14:01)
[2024-11-25] MEDS ORDERED: fentaNYL CITRATE 100 MCG/2 ML VL ONE (14:01)
[2024-11-25] MEDS ORDERED: ONDANSETRON HCL 4 MG/2 ML VIAL ONE (14:01)
[2024-11-25] MEDS ORDERED: PROPOFOL 10 MG/ML 20 ML IV ONE (14:01)
[2024-11-25] MEDS ORDERED: HYDROmorphone HCL 2 MG/ML VL/or syr IV PRN (14:30)
--- NOTE | 2024-11-25 14:38 | DVHOP2 ---
Operative Report DATE OF OPERATION: 11/25/24 PROCEDURE: Upper Endoscopy with biopsy. PREOPERATIVE INDICATION: The patient is a 59 -year-old female undergoing endoscopy for GERD and atypical chest pain POSTOPERATIVE DIAGNOSES: 1. 3 cm sliding-type hiatal hernia with slightly irregular squamocolumnar junction minimal grade a erosive esophagitis 2. Mild antral gastritis with pylorospasm otherwise normal examination up to the 2nd and 3rd part of the duodenum PROCEDURE PERFORMED BY: Nahomi Solis GI NURSE: Iwona SCOPE: Olympus videoendoscope. ASA CLASS: 3 PREOPERATIVE MEDICATIONS: Dr. Willie Cordova PROCEDURE IN DETAIL: After obtaining an informed consent, the patient was placed on left lateral decubitus position. The patient was then sedated with the above medications. A bite block was placed between her teeth. The endoscope was then passed through the oropharynx, into the esophagus, and through the stomach and pylorus up to the second and third part of the duodenum. The endoscope was then withdrawn. The 2nd and 3rd part of the duodenum and the duodenal bulb were normal. Duodenal biopsies were obtained The pre-pyloric area antrum and body showed mild gastritis with some pylorospasm. Gastric biopsies were obtained. On retroflexion the fundus cardia and angularis were normal. The endoscope was then withdrawn into the distal esophagus. Patient had a 3 cm sliding-type hiatal hernia with slightly irregular squamocolumnar junction minimal grade a erosive esophagitis GE junction biopsies were obtained .The remaining distal and proximal esophagus and oropharynx were unremarkable The patient tolerated the procedure well without difficulty. COMPLICATIONS : None SPECIMENS: Duodenal biopsies Gastric biopsies GE junction biopsies DISPOSITION: Transfer back to the floor Stable PLAN: 1. Await for biopsy result 2. Will place pt on Protonix 40 mg bid 3. Carafate 1 g p.o. twice a day 4. Resume soft mechanical diet advance as tolerated; dietary changes for GERD 5. Outpatient follow up with me to discuss elective colonoscopy NAHOMI SOLIS MD Nov 25, 2024 14:38
--- NOTE | 2024-11-25 16:46 | DVHDS2 ---
Discharge Summary Date of Admission Nov 22, 2024 at 20:32 Date of Discharge: Nov 25, 2024 Admitting Diagnosis Rule out ACS Labs/Diagnostic Data: Laboratory Results Test 11/23/24 07:18 11/23/24 05:08 11/22/24 20:55 11/22/24 20:54 White Blood Count 5.8 10^3/uL (4.4-10.8) Red Blood Count 4.08 10^6/uL (4.0-5.20) Hemoglobin 12.6 g/dL (12.2-16.2) Hematocrit 36.6 % (36.0-46.0) Mean Corpuscular Volume 89.9 fL (80.0-100.0) Mean Corpuscular Hemoglobin 30.9 pg (28.0-32.0) Mean Corpuscular Hemoglobin Concent 34.4 g/dL (32.0-36.0) Red Cell Distribution Width 13.1 % (11.8-14.3) Platelet Count 188 10^3/uL (140-450) Mean Platelet Volume 8.6 fL (6.9-10.8) Neutrophils (%) (Auto) 44.3 % (37.0-80.0) Lymphocytes (%) (Auto) 45.3 % (10.0-50.0) Monocytes (%) (Auto) 7.3 % (0.0-12.0) Eosinophils (%) (Auto) 2.6 % (0.0-7.0) Basophils (%) (Auto) 0.5 % (0.0-2.0) Neutrophils # (Auto) 2.6 10 ^3/uL (1.6-8.6) Lymphocytes # (Auto) 2.6 10 ^3/uL (0.4-5.4) Monocytes # (Auto) 0.4 10 ^3/uL (0-1.3) Eosinophils # (Auto) 0.2 10 ^3/uL (0-0.8) Basophils # (Auto) 0 10 ^3/uL (0-0.2) Nucleated Red Blood Cells 0.0 % Erythrocyte Sedimentation Rate 9 mm/hr (0-20) Sodium Level 143 mmol/L (136-145) Potassium Level 3.7 mmol/L (3.5-5.1) Chloride Level 109 mmol/L (98-107) Carbon Dioxide Level 25 mmol/L (20-31) Anion Gap 9 (5-15) Blood Urea Nitrogen 9 mg/dL (9-23) Creatinine 0.67 mg/dL (0.550-1.02) Glomerular Filtration Rate Calc 102 mL/min (>90) BUN/Creatinine Ratio 13.4 (10.0-20.0) Serum Glucose 85 mg/dL (74-106) Calcium Level 8.9 mg/dL (8.7-10.4) Total Bilirubin 0.4 mg/dL (0.2-1.0) Aspartate Amino Transferase (AST) 18 U/L (13-40) Alanine Aminotransferase (ALT) 11 U/L (7-40) Alkaline Phosphatase 66 U/L (46-116) C-Reactive Protein High Sensitivity 0.18 mg/dL (<1.0) Total Protein 6.1 g/dL (5.7-8.2) Albumin 3.8 g/dL (3.2-4.8) Vitamin B12 Level 882 pg/mL (211-911) Vitamin D 25-Hydroxy 55.4 ng/mL (30.0-100) Direct Bilirubin 0.1 mg/dL (<0.3) Thyroid Stimulating Hormone (TSH) 1.77 uIU/mL (0.55-4.78) Test 11/22/24 20:34 11/22/24 20:32 11/22/24 17:17 11/22/24 14:40 Prothrombin Time 10.6 sec (9.3-11.8) Prothrombin Time INR 1.00 (0.9-1.15) Activated Partial Thromboplast Time 25.6 SEC (24.5-34.5) Lactic Acid Level 0.7 mmol/L (0.4-2.0) Urine Color Colorless (Yellow) Urine Clarity Clear (Clear) Urine pH 7.0 (5.0-9.0) Urine Specific Frostproof 1.008 (1.001-1.035) Urine Protein Negative (Negative) Urine Ketones Negative (Negative) Urine Blood Negative /uL (Negative) Urine Nitrite Negative (Negative) Urine Bilirubin Negative (Negative) Urine Urobilinogen Normal mg/dL (Negative) Urine Leukocyte Esterase Negative /uL (Negative) Urine RBC None seen /hpf (0 - 4) Urine Microscopic WBC 2 /HPF (0-5) Urine Squamous Epithelial Cells Few /hpf (<5) Urine Bacteria None seen /hpf (None Seen) Urine Glucose Normal mg/dL (Normal) Urine Opiates Screen Neg (NEGATIVE) Urine Fentanyl Screen Neg (NEGATIVE) Urine Barbiturates Screen Neg (NEGATIVE) Urine Phencyclidine Screen Neg (NEGATIVE) Urine Amphetamines Screen Neg (NEGATIVE) Urine Benzodiazepines Screen Neg (NEGATIVE) Urine Cocaine Screen Neg (NEGATIVE) Urine Cannabinoids Screen Neg (NEGATIVE) Troponin I High Sensitivity < 3 ng/L (</=34) Hemoglobin A1c 5.4 % A1C (<5.7) Phosphorus Level 4.0 mg/dL (2.4-5.1) Magnesium Level 2.4 mg/dL (1.6-2.6) B-Type Natriuretic Peptide 78.59 pg/mL (0-100) Triglycerides Level 110 mg/dL (< 150) Cholesterol Level 206 mg/dL (< 200) LDL Cholesterol 139 mg/dL (< 100) HDL Cholesterol 59 mg/dL (40-59) Lipase 58 U/L (12-53) Other Laboratory Tests 11/23/24 07:18 11/23/24 05:08 Brief Hx & Hospital Course: History of Present Illness Peg Power is a 59 year female patient who presents to the ED with chief complaint of left sided oppressive chest pain which radiated to left ear which started in functional class IV on 11/23/2024 at 10:30 a.m. it has been continuous, initially pain had intensity of 8/10, and fluctuated with lowest 2/10, per patient it was triggered after waking up with holocephalic headache and dizziness, which was refractory to ibuprofen. Per patient there is no alleviating factor. Due to persistence of symptoms, patient decided speak with telehealth OFFICE CLINICIAN, who suggested evaluation in ED, prompting her visit. Denies any other associated symptoms. Course of hospitalization: Patient's troponins were negative x3. Echocardiogram was within normal limits. No ST changes. Patient is aspirin and Plavix was stopped. Further discussion with the patient reveals that she has had problems with gastric reflux disease for over a year, currently taking a tbsp of baking soda every evening before bed. GI consultation was obtained. Patient underwent EGD today. Findings of sliding hiatal hernia, esophagitis and gastritis was noted. Patient has agreeable to be discharged home and continue with both Protonix and Carafate. She will follow up with her PCP within 1-2 weeks as well as Dr[address] Solis within the next three weeks. Physical examination General: Alert and Oriented x3. No acute distress. Well-nourished. Eyes: EOMI. Anicteric. HENT: Moist mucous membranes. Lungs: Clear to auscultation bilaterally. No accessory muscle use. Cardiovascular: Regular rate and rhythm. No murmur. No JVD. Abdomen: Soft, non-tender and non-distended. No palpable masses. Extremities: No edema. Non-tender. Skin: No rashes or lesions. Warm. Neurologic: No focal neurological deficits. CN II-XII grossly intact, but not individually tested. Psychiatric: Cooperative. Appropriate mood and affect. Total time spent with patient discussing and formulating plan of care: 35 minutes. This medical document was created using an electronic medical record system with [employer] system. Although this document has been carefully reviewed, there may still be some phonetic and typographical errors. These areas are purely typographical due to imperfections of the software programs, and do not reflect any compromise in the patient's medical care. Consults/Reason for consult Gastroenterology: GERD Operations or Procedures 11/24/2024: EGD Condition at Discharge: Fair Final Diagnosis/Problems List Chest pain secondary to peptic ulcer disease Secondary diagnosis: BPPV GERD ACS ruled out Discharge Disposition: Home Discharge Instruct/Medications Diet: Regular Diet comment: Recommend sticking with a bland diet for the next two weeks Activity: No Restrictions, As Tolerated Follow Up/Referral: Follow up with Dr. Solis in three weeks to go over biopsy results PCP in 1-2 weeks Medications: Protonix 40 mg p.o. b.i.d. times 30 days Carafate 1 g tablet b.i.d. times 30 days Scheduled Meclizine Hcl (Meclizine Hcl), 25 MG PO PRN, (Reported) Semaglutide (Ozempic), 2 MG SC QWEEKLY, (Reported) 36 Discharge Statement: "Patient was advised to return to the ER or call 911 if any headaches, dizziness, shortness of breath, chest pain, abdominal pain, bleeding, fevers, or worsening of medical condition. Patient was counseled about treatment plan, medications, possible side effects, patientverbalized understanding. All questions were answered to the best of my ability. This discharge took greater then 30 minutes in planning, reviewing documentation, counseling the patient, and discussing with other team members." ASSESSMENT ASSESSMENT Assessment Chest pain secondary to peptic ulcer disease Date of Service: Nov 25, 2024 Billing Provider: CINDI MURRAY NP Common Visit Codes: [id number] INP/OBS CARE(HIGH) CINDI MURRAY NP Nov 25, 2024 16:46
[2024-11-25] MEDS ORDERED: SUCRALFATE 1 GM/10 ML ORAL SUSP PO SCH (17:00)
[2024-11-25] MEDS ORDERED: SUCR1TAB31 OR (17:55)
[2024-11-25] MEDS ORDERED: PANT40TA2 PO (17:55)
== END 2024-11-25 18:47 | disposition home or self-care (01) | DRG 241 ==
LOC: ER 14:02 → OVERFLOW 20:32 → TELE-WESTW 20:37
PROVIDERS: ADMIT Nurse Practitioner Acute Care; ATTEND Nurse Practitioner Acute Care
PROC: 0DB68ZX Excision of Stomach, Via Natural or Artificial Opening Endoscopic, Diagnostic (ICD-10-PCS; 2024-11-25)
PROC: 0DB48ZX Excision of Esophagogastric Junction, Via Natural or Artificial Opening Endoscopic, Diagnostic (ICD-10-PCS; 2024-11-25)
PROC: 0DB98ZX Excision of Duodenum, Via Natural or Artificial Opening Endoscopic, Diagnostic (ICD-10-PCS; principal; 2024-11-25 14:05)
DX: K27.9 Peptic ulcer, site unspecified, unspecified as acute or chronic, without hemorrhage or perforation (principal); K31.3 Pylorospasm, not elsewhere classified; K21.9 Gastro-esophageal reflux disease without esophagitis; H81.10 Benign paroxysmal vertigo, unspecified ear; K29.70 Gastritis, unspecified, without bleeding; E78.5 Hyperlipidemia, unspecified; E66.01 Morbid (severe) obesity due to excess calories; K44.9 Diaphragmatic hernia without obstruction or gangrene; K21.00 Gastro-esophageal reflux disease with esophagitis, without bleeding; Z88.6 Allergy status to analgesic agent; Z82.49 Family history of ischemic heart disease and other diseases of the circulatory system; Z90.710 Acquired absence of both cervix and uterus; Z79.899 Other long term (current) drug therapy
CPT/HCPCS: 36415; 43239; 70450; 71046; 76705; 80048; 80053; 80061; 80076; 80307; 81001; 82306; 82607; 83036; 83605; 83690; 83735; 83880; 84100; 84443; 84484; 85025; 85610; 85652; 85730; 86141; 86850; 86900; 86901; 93005; 93306; 93886; G0378; J2003; J2250; J2405; J2470; J2704